=== PATIENT | female | born 1945 | race Caucasian/White ===

== ENCOUNTER 2018-07-30 12:50 | Emergency (ER) | payer OTHER ==
--- NOTE | 2018-07-30 14:32 | EDPHYS ---
Physician Documentation [facility] Name: Nayeli Hicks Age: 72 yrs Sex: Female : 1945 Arrival Date: 07/30/2018 Time: 12:52 Bed 10 Private MD: None, None ED Physician Daniel Edge HPI: 07/30 14:28 This 72 yrs old Female presents to ER via Ambulatory with complaints of Knee maykel Injury, Fall Injury. 14:28 Details of fall: The patient fell from an upright position, while standing. Onset: The maykel symptoms/episode began/occurred 5 day(s) ago. Associated injuries: The patient sustained left knee, decreased range of motion, swelling. Severity of symptoms: At their worst the symptoms were mild, moderate, in the emergency department the symptoms are unchanged. The patient has not experienced similar symptoms in the past. Historical: - Allergies: 12:59 Sulfa (Sulfonamide Antibiotics); tw2 - PSHx: 12:59 Tonsillectomy; Adenoids; Hysterectomy; Appendectomy; back sx; tw2 - Immunization history:: Adult Immunizations. - Social history:: Smoking status: . - Ebola Screening: : Patient denies travel to an Ebola-affected area in the 21 days before illness onset. - Family history:: not pertinent. ROS: 14:28 Constitutional: Negative for fever, chills, and weight loss, Eyes: Negative for injury, maykel pain, redness, and discharge, ENT: Negative for injury, pain, and discharge, Neck: Negative for injury, pain, and swelling, Cardiovascular: Negative for chest pain, palpitations, and edema, Respiratory: Negative for shortness of breath, cough, wheezing, and pleuritic chest pain, Abdomen/GI: Negative for abdominal pain, nausea, vomiting, diarrhea, and constipation, Back: Negative for injury and pain, : Negative for injury, bleeding, discharge, and swelling, Skin: Negative for injury, rash, and discoloration, Neuro: Negative for headache, weakness, numbness, tingling, and seizure, Psych: Negative for depression, anxiety, suicide ideation, homicidal ideation, and hallucinations, Allergy/Immunology: Negative for hives, rash, and allergies, Endocrine: Negative for neck swelling, polydipsia, polyuria, polyphagia, and marked weight changes, Hematologic/Lymphatic: Negative for swollen nodes, abnormal bleeding, and unusual bruising. 14:28 MS/extremity: Positive for injury or acute deformity, contusion, decreased range of motion, pain, swelling, tenderness, of the left knee. Exam: 14:28 Constitutional: This is a well developed, well nourished patient who is awake, alert, maykel and in no acute distress. Head/Face: Normocephalic, atraumatic. Eyes: Pupils equal round and reactive to light, extra-ocular motions intact. Lids and lashes normal. Conjunctiva and sclera are non-icteric and not injected. Cornea within normal limits. Periorbital areas with no swelling, redness, or edema. ENT: Nares patent. No nasal discharge, no septal abnormalities noted. Tympanic membranes are normal and external auditory canals are clear. Oropharynx with no redness, swelling, or masses, exudates, or evidence of obstruction, uvula midline. Mucous membranes moist. Neck: Trachea midline, no thyromegaly or masses palpated, and no cervical lymphadenopathy. Supple, full range of motion without nuchal rigidity, or vertebral point tenderness. No Meningismus. Chest/axilla: Normal chest wall appearance and motion. Nontender with no deformity. No lesions are appreciated. Cardiovascular: Regular rate and rhythm with a normal S1 and S2. No gallops, murmurs, or rubs. Normal PMI, no JVD. No pulse deficits. Respiratory: Lungs have equal breath sounds bilaterally, clear to auscultation and percussion. No rales, rhonchi or wheezes noted. No increased work of breathing, no retractions or nasal flaring. Abdomen/GI: Soft, non-tender, with normal bowel sounds. No distension or tympany. No guarding or rebound. No evidence of tenderness throughout. Back: No spinal tenderness. No costovertebral tenderness. Full range of motion. Female : Normal external genitalia. Skin: Warm, dry with normal turgor. Normal color with no rashes, no lesions, and no evidence of cellulitis. Neuro: Awake and alert, GCS 15, oriented to person, place, time, and situation. Cranial nerves II-XII grossly intact. Motor strength 5/5 in all extremities. Sensory grossly intact. Cerebellar exam normal. Normal gait. Psych: Awake, alert, with orientation to person, place and time. Behavior, mood, and affect are within normal limits. 14:28 Musculoskeletal/extremity: Extremities: noted in the left knee: decreased ROM, pain. Vital Signs: 12:57 BP 131 / 71; Pulse 77; Resp 17; Temp 98.(TE); Pulse Ox 100% on R/A; Weight 68.04 kg tw2 (R); Pain 5/10; 14:27 BP 119 / 67; Pulse 76; Resp 17; Pulse Ox 96% on R/A; Pain 9/10; tw2 MDM: 13:32 Patient medically screened. [facility] 14:30 Data reviewed: vital signs, nurses notes, radiologic studies, plain films. [facility] 07/30 14:04 Order name: Knee Left 3 View XRAY 07/30 14:27 Order name: Ice pack; Complete Time: 14:27 tw2 07/30 14:28 Order name: Knee Immobilizer; Complete Time: 17:31 [facility] Administered Medications: 14:41 Drug: Motrin 400 mg Route: PO; tw2 15:02 Follow up: Response: No adverse reaction tw2 14:41 Drug: Winn (7.5 mg-325 mg) 1 tabs Route: PO; tw2 15:02 Follow up: Response: No adverse reaction tw2 Disposition: 07/30/18 14:32 Discharged to Home. Impression: Fall due to bumping against object, Fracture of patella, Nondisplaced transverse fracture of left patella. - Condition is Stable. - Discharge Instructions: Patellar Fracture, Adult, Fall Prevention in the Home, [id number]. - Prescriptions for Tylenol- Codeine #3 300-30 mg Oral Tablet - take 2 tablets by ORAL route every 6 hours As needed; 25 tablet. Motrin IB 200 mg Oral Tablet - take 2 tablet by ORAL route every 6 hours As needed as needed with food; 30 tablet. - Medication Reconciliation Form, Thank You Letter, Antibiotic Education, Prescription Opioid Use form. - Follow up: Private Physician; When: 2 - 3 days; Reason: Recheck today's complaints, Continuance of care, Re-evaluation by your physician. Follow up: Bret Sosa MD; When: 2 - 3 days; Reason: Recheck today's complaints, Continuance of care, Re-evaluation by your physician. - Problem is new. - Symptoms have improved. Signatures: Dispatcher [employer] EDDaniel Chase MD MD cha Wise, Tara, RN RN tw2 Corrections: (The following items were deleted from the chart) 14:31 14:28 Ice pack ordered. maykel tw2 15:02 14:32 07/30/2018 14:32 Discharged to Home. Impression: Fall due to bumping against tw2 object; Fracture of patella; Nondisplaced transverse fracture of left patella. Condition is Stable. Forms are Medication Reconciliation Form, Thank You Letter, Antibiotic Education, Prescription Opioid Use. Follow up: Private Physician; When: 2 - 3 days; Reason: Recheck today's complaints, Continuance of care, Re-evaluation by your physician. Follow up: Bret Sosa; When: 2 - 3 days; Reason: Recheck today's complaints, Continuance of care, Re-evaluation by your physician. Problem is new. Symptoms have improved. maykel
--- NOTE | 2018-07-30 14:32 | ER ---
Nurse's Notes [facility] Name: Nayeli Hicks Age: 72 yrs Sex: Female : 1945 Arrival Date: 07/30/2018 Time: 12:52 Bed 10 Private MD: None, None Diagnosis: Fall due to bumping against object;Fracture of patella;Nondisplaced transverse fracture of left patella Presentation: 07/30 12:56 Presenting complaint: Patient states: i fell on Sunday at this drs office, i got off tw2 the scale and turned and caught my toe on the scales and i went right down onto the floor mainly my LEFT knee, it has been swollen and painful, hard time walking. Transition of care: patient was not received from another setting of care. Onset of symptoms was July 30, 2018. Risk Assessment: Do you want to hurt yourself or someone else? Patient reports no desire to harm self or others. Initial Sepsis Screen: Does the patient meet any 2 criteria? No. Patient's initial sepsis screen is negative. Does the patient have a suspected source of infection? No. Patient's initial sepsis screen is negative. Care prior to arrival: None. 12:56 Method Of Arrival: Ambulatory tw2 12:56 Acuity: MARIA EUGENIA 4 tw2 Triage Assessment: 12:57 General: Appears in no apparent distress. Behavior is calm, cooperative, appropriate tw2 for age. Pain: Complains of pain in right knee. Musculoskeletal: Range of motion: intact in all extremities, Reports swelling in LEFT knee and up into my thigh. Injury Description: pt fell on Sunday landed on left knee. Historical: - Allergies: 12:59 Sulfa (Sulfonamide Antibiotics); tw2 - PSHx: 12:59 Tonsillectomy; Adenoids; Hysterectomy; Appendectomy; back sx; tw2 - Immunization history:: Adult Immunizations. - Social history:: Smoking status: . - Ebola Screening: : Patient denies travel to an Ebola-affected area in the 21 days before illness onset. - Family history:: not pertinent. Screenin:26 Abuse screen: Denies threats or abuse. Nutritional screening: No deficits noted. tw2 Tuberculosis screening: No symptoms or risk factors identified. Fall Risk Fall in past 12 months (25 points). Assessment: 13:26 General: Appears in no apparent distress. Behavior is calm, cooperative, appropriate tw2 for age. Pain: Complains of pain in right leg and right knee. Neuro: Level of Consciousness is awake, alert, obeys commands, Oriented to person, place, time, situation. Cardiovascular: Patient's skin is warm and dry. Respiratory: Airway is patent Respiratory effort is even, unlabored, Respiratory pattern is regular, symmetrical. GI: No signs and/or symptoms were reported involving the gastrointestinal system. : No signs and/or symptoms were reported regarding the genitourinary system. Musculoskeletal: Circulation, motion, and sensation intact. Range of motion: intact in all extremities, Swelling present in right knee. 14:27 Reassessment: Patient appears in no apparent distress at this time. No changes from tw2 previously documented assessment. Patient and/or family updated on plan of care and expected duration. Pain level reassessed. Patient is alert, oriented x 3, equal unlabored respirations, skin warm/dry/pink. 15:02 Reassessment: Patient appears in no apparent distress at this time. No changes from tw2 previously documented assessment. Patient and/or family updated on plan of care and expected duration. Pain level reassessed. Patient is alert, oriented x 3, equal unlabored respirations, skin warm/dry/pink. Vital Signs: 12:57 BP 131 / 71; Pulse 77; Resp 17; Temp 98.(TE); Pulse Ox 100% on R/A; Weight 68.04 kg tw2 (R); Pain 5/10; 14:27 BP 119 / 67; Pulse 76; Resp 17; Pulse Ox 96% on R/A; Pain 9/10; tw2 ED Course: 12:52 Patient arrived in ED. dp 12:52 None, None is Private Physician. dp 12:57 Triage completed. tw2 12:58 Arm band placed on. tw2 13:00 Placed in gown. Bed in low position. Adult w/ patient. Pulse ox on. NIBP on. tw2 13:25 Tisha Gaona RN is Primary Nurse. tw2 13:32 Daniel Edge MD is Attending Physician. [facility] 14:28 X-ray completed. Portable x-ray completed in exam room. Patient tolerated procedure ml well. 14:30 Knee Left 3 View XRAY In Process Unspecified. EDMS 14:31 Bret Sosa MD is Referral Physician. [facility] 15: No provider procedures requiring assistance completed. Patient did not have IV access tw2 during this emergency room visit. Administered Medications: 14:41 Drug: Motrin 400 mg Route: PO; 15: Follow up: Response: No adverse reaction tw2 14:41 Drug: Vallejo (7.5 mg-325 mg) 1 tabs Route: PO; tw2 15:02 Follow up: Response: No adverse reaction tw2 Outcome: 14:32 Discharge ordered by . [facility] 15: Patient left the ED. tw2 15:02 Discharged to home via wheelchair, with family. tw 15: Condition: stable 15:02 Discharge instructions given to patient, family, Instructed on discharge instructions, follow up and referral plans. no drinking with medication, no driving heavy equipment, medication usage, Demonstrated understanding of instructions, follow-up care, medications, Prescriptions given X 2. Signatures: Dispatcher [employer] EDDaniel Chase MD MD cha Lopez, Melissa ml Wise, Tara, RN RN tw2 Matthew Spangler
[2018-07-30] MEDS ORDERED: IBUPROFEN 400 MG TAB ONE (14:44)
[2018-07-30] MEDS ORDERED: HYDROCODONE/APAP 7.5/325 MG TAB ONE (14:45)
--- NOTE | 2018-07-30 14:53 | RAD REPORT ---
EXAM DESCRIPTION: RAD - Knee Left 3 View - 07/30/2018 2:29 pm CLINICAL HISTORY: Left knee pain status post injury FINDINGS: Mildly displaced patellar fracture Cortical regularity involves the medial tibial plateau. This is equivocal for a fracture. If clinical ly indicated further evaluation with CT or MRI could be obtained No dislocation.
== END 2018-07-30 15:02 | disposition home or self-care (01) ==
LOC: ER 12:50
DX: S82.035A Nondisplaced transverse fracture of left patella, initial encounter for closed fracture (principal); W19.XXXA Unspecified fall, initial encounter; Y93.89 Activity, other specified; Y92.9 Unspecified place or not applicable; Z88.2 Allergy status to sulfonamides
CPT/HCPCS: 99284